=== PATIENT | male | born 1945 | race Caucasian/White ===

== ENCOUNTER → 2019-07-31 | Outpatient (CLI) | payer OTHER | LOC: SJCVCIMAG 09:22 | PROVIDERS: ATTEND Internal Medicine | DX: I45.10 Unspecified right bundle-branch block (principal); I44.0 Atrioventricular block, first degree; I71.4 Abdominal aortic aneurysm, without rupture; I10 Essential (primary) hypertension; E78.5 Hyperlipidemia, unspecified; I65.23 Occlusion and stenosis of bilateral carotid arteries; M79.89 Other specified soft tissue disorders; Z79.899 Other long term (current) drug therapy; Z87.891 Personal history of nicotine dependence; Z90.49 Acquired absence of other specified parts of digestive tract ==

== ENCOUNTER → 2020-01-29 | Outpatient (CLI) | payer OTHER | LOC: SJCVCIMAG 07:49 | PROVIDERS: ATTEND Internal Medicine | DX: I65.23 Occlusion and stenosis of bilateral carotid arteries (principal); I08.8 Other rheumatic multiple valve diseases; I44.0 Atrioventricular block, first degree; I45.10 Unspecified right bundle-branch block; I11.9 Hypertensive heart disease without heart failure; E78.5 Hyperlipidemia, unspecified; I73.9 Peripheral vascular disease, unspecified; M79.89 Other specified soft tissue disorders; I77.1 Stricture of artery; E78.00 Pure hypercholesterolemia, unspecified; Z79.899 Other long term (current) drug therapy; Z82.49 Family history of ischemic heart disease and other diseases of the circulatory system; Z87.891 Personal history of nicotine dependence; Z79.82 Long term (current) use of aspirin ==

== ENCOUNTER → 2020-03-15 | Outpatient (CLI) | payer OTHER ==
[2020-03-15] VITALS (8 sets, daily range): BP systolic 123–147; BP diastolic 62–100
[~2020-03-15] VITALS: Ht 180.3 cm; Wt 104.3 kg
[~2020-03-15] MED LIST: ASA81BEC PO; LIPITOR10 MG PO; NORVASC 2.5 MG2.5 M1 PO; ZYRTEC10 M5 PO
[2020-03-15 09:17] LABS: HEMATOCRIT 46.9 % (42.0-52.0); HEMOGLOBIN 16.3 gm/dL (14.0-18.0); MCHC 34.7 g/dL (28.0-37.0); MCV 89.4 fL (80.0-100.0); RBC 5.25 mil/uL (4.50-6.00); RDW 13.4 % (10.5-14.5); WBC 7.5 thou/uL (4.0-11.0)
[2020-03-15 09:23] LABS: CALCIUM 8.7 mg/dL (8.5-10.1); CREATININE 1.1 mg/dL (0.7-1.3); POTASSIUM 3.9 mmol/L (3.5-5.1)
== END | disposition home or self-care (01) ==
LOC: CATH 07:48
PROVIDERS: ATTEND Nuclear Medicine Nuclear Cardiology
DX: I70.211 Atherosclerosis of native arteries of extremities with intermittent claudication, right leg (principal); I70.1 Atherosclerosis of renal artery; I10 Essential (primary) hypertension; E78.5 Hyperlipidemia, unspecified; Z85.828 Personal history of other malignant neoplasm of skin; Z98.890 Other specified postprocedural states; Z79.899 Other long term (current) drug therapy; Z98.52 Vasectomy status; Z87.891 Personal history of nicotine dependence

== ENCOUNTER → 2020-03-24 | Outpatient (CLI) | payer OTHER ==
[~2020-03-24] MED LIST changes: +NORVASC5 M1 PO
== END ==
LOC: CAT 07:50
PROVIDERS: ATTEND Nuclear Medicine Nuclear Cardiology
DX: I71.4 Abdominal aortic aneurysm, without rupture (principal); I74.5 Embolism and thrombosis of iliac artery; M16.0 Bilateral primary osteoarthritis of hip; M47.816 Spondylosis without myelopathy or radiculopathy, lumbar region; I72.3 Aneurysm of iliac artery

== ENCOUNTER 2020-03-26 06:07 | Inpatient (IN) | payer OTHER ==
[2020-03-24 10:47] LABS: URINE BILIRUBIN NEGATIVE (Negative); URINE BLOOD NEGATIVE (Negative); URINE CLARITY CLEAR; URINE COLOR YELLOW; URINE GLUCOSE-RANDOM* NEGATIVE (Negative); URINE KETONES NEGATIVE (Negative); URINE LEUKOCYTES-REFLEX NEGATIVE (Negative); URINE NITRITE-REFLEX NEGATIVE (Negative); URINE PROTEIN (DIPSTICK) NEGATIVE (Negative); URINE SPECIFIC GRAVITY <= 1.005 (1.005-1.035)
[2020-03-24 10:52] LABS: ABSOLUTE NEUTROPHILS 5.6 thou/uL (1.4-8.2); BASOPHILS 0.5 % (0.0-2.0); EOSINOPHILS 1.7 % (0.0-3.0); HEMATOCRIT 48.3 % (42.0-52.0); HEMOGLOBIN 16.5 gm/dL (14.0-18.0); LYMPHOCYTES 18.4 % (24.0-44.0); MCH 30.8 pg (26.0-34.0); MCHC 34.3 g/dL (28.0-37.0); MONOCYTES 9.7 % (1.0-8.0); PLATELET COUNT 192 thou/uL (150-400); POLYS 69.7 % (36.0-66.0); RBC 5.36 mil/uL (4.50-6.00); RDW 13.8 % (10.5-14.5)
[2020-03-24 10:56] LABS: APTT 26.2 Seconds (24.5-32.8); PROTIME 10.6 Seconds (9.3-11.4)
[2020-03-24 11:02] LABS: CALCIUM 8.9 mg/dL (8.5-10.1); POTASSIUM 4.2 mmol/L (3.5-5.1); TOTAL BILIRUBIN 2.3 mg/dL (0.2-1.0); TOTAL PROTEIN 6.6 g/dL (6.4-8.2)
--- NOTE | 2020-03-24 12:53 | EKG ---
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: SHOAIB : 1945 Requested By: Rod Barton Order Number: [id number] MD: Beau Huber Measurements Intervals [place] Rate: 70 P: -38 SC: 229 QRS: 44 QRSD: 113 T: 14 QT: 406 QTc: 439 Interpretive Statements Sinus rhythm Prolonged SC interval RsR" V1 only Borderline intraventricular conduction delay Compared to ECG 11/15/2004 09:38:17 First degree AV block now present Incomplete right bundle-branch block no longer present Electronically Signed On 03-24-2020 12:53:07 SUGAR GRINDER by Beau Huber [email or web address] <ELECTRONICALLY SIGNED> By: Beau Huber MD, [facility] 03/24/20 1253 1030 1030 Beau Huber MD, FAC /EPI
[2020-03-26] VITALS (19 sets, daily range): BP systolic 93–151; BP diastolic 54–86
[~2020-03-26] VITALS: Ht 20.3 cm; Wt 111.3 kg
--- NOTE | 2020-03-26 20:33 | NUR ---
PT ARRIVED FRO OR TO ICU AT 1353. PT ACCOMPANIED BY NURSING STAFF. PT ALERT AND ORIENTED X3. PT HAS RIGHT RADIAL ART LINE. PT ON 5MG/HR CARDENE DRIP ON ARRIVAL TO ICU. PT AT BEDSIDE AT 1445.P GIVEN ICU PRIVACY CODE, EXPLAINED VISITATION POLICY AND GIVEN ICU PHONE NUMBER. PT NO T COMPLAINING OF PAIN. CONTINUE TO MONITOR.
[2020-03-27] VITALS (27 sets, daily range): BP systolic 100–150; BP diastolic 50–93
[2020-03-27 05:43] LABS: HEMATOCRIT 22.4 % (42.0-52.0); MCH 31.2 pg (26.0-34.0); MCHC 34.1 g/dL (28.0-37.0); MCV 91.5 fL (80.0-100.0); RBC 2.44 mil/uL (4.50-6.00); RDW 13.3 % (10.5-14.5); WBC 7.9 thou/uL (4.0-11.0)
[2020-03-27 05:45] LABS: CREATININE 0.6 mg/dL (0.7-1.3)
[2020-03-27 05:48] LABS: POTASSIUM 2.8 mmol/L (3.5-5.1)
[2020-03-27 05:50] LABS: HEMOGLOBIN 7.6 gm/dL (14.0-18.0)
[2020-03-27 08:20] LABS: HEMATOCRIT 44.8 % (42.0-52.0); MCH 30.8 pg (26.0-34.0); MCHC 34.2 g/dL (28.0-37.0); MCV 89.9 fL (80.0-100.0); RBC 4.99 mil/uL (4.50-6.00); RDW 13.4 % (10.5-14.5); WBC 17.9 thou/uL (4.0-11.0)
[2020-03-27 08:24] LABS: CREATININE 1.2 mg/dL (0.7-1.3)
[2020-03-27 08:36] LABS: CALCIUM 8.4 mg/dL (8.5-10.1)
[2020-03-27 08:37] LABS: HEMOGLOBIN 15.3 gm/dL (14.0-18.0)
--- NOTE | 2020-03-27 12:48 | NUR ---
NO COMPLAINTS OF PAIN, B GROIN SITES SOFT AND DRG CLEAN DRY INTACT. CARDENE DRIP OFF AT 0820. SBP REMAINED LESS THAN 130. AMBULATED WITH PT AND TOLERATED WELL. GUTIERREZ REMOVED AT 1000 AND R RADIAL CASH REMOVED AT 1220, PRESSURE HELD FOR 15 MINUTES AND PRESSURE DRESSING APPLIED. WILL TRANSFER TO , ROOM 200. REPORT GIVEN TO DARIANA HESS.
--- NOTE | 2020-03-27 16:43 | NUR ---
PT. ARRIVED AT THE FLOOR AROUND 1300; PT. AOX4; NO C/O PAIN; EDUCATED ABOUT FALL PRECAUTIONS; ST. UNDERSTANDING; EDUCATED ABOUT USING URINAL; ST. UNDERSTANDING; SR ON THE MONITOR; L. SIDE DRESSING; D/I; PT. TRANSFER FROM ICU WITH AT THE BED SIDE; AFTER 1500 NOT VISITOR AT THE BED SIDE; AROUND 1600 NOTICED DIFFERENTE VISITOR; BLEND PLANT OPERATOR ENTER TO THE ROOM; VISITOR ST. BEING THE DAUGHTER; EDUCATED ABOUT VISITOR POLICY; PT'S DAUGHTER UPSET; ST. "VAZQUEZ PUT ME ON THE LIST"; BLEND PLANT OPERATOR NOT NOTIFIED; EDUCATED ABOUT PER PIPELINE CONSTRUCTION INSPECTOR, ROMERO, NOT TWO VISITORS ALLOW; PT'S DAUGHTER UPSET; ST. WILL NOT STAY UNTIL 0700; BLEND PLANT OPERATOR LEAVE ROOM; TAX FORM PREPARER NOTIFIED; TOYA HENRY TAX FORM PREPARERVAZQUEZ ALLOW TWO VISITORS DUE TO DRIVING CIRCUNSTANCES; NOTIFIED ABOUT ROMERO ON 03/26/20 NOTIFIED NURSES ON CCU PT'S ARE NOT ALLOW TO HAVE MORE THAN ONE VISITOR REGARDLESS OF THE CIRCUNSTANCES; TAX FORM PREPARER WILL ROUND ON PT. LATER ON THE DAY; ASSESSMENT CHARGED; FOLLOWING POC; WILL PASS ON REPORT;
[2020-03-28 05:50] VITALS: BP 149/78
--- NOTE | 2020-03-28 06:05 | NUR ---
ASSUME CARE 1900. PT/VITALS STABLE. DENIES ANY PAIN. GOOD ENDURANCE TO ACTIVITY. ASSESSMENT CHARTED. PROGRESSING WELL WITH POC. SR/1D AVB ON MONITOR. BILAETERAL GROIN SITES/CDI WITH NO HEMATOMA NOTED. PLAN IS POSSIBLE DISCHARGE TODAY. WILL CONTINUE TO MONITOR AND FOLLOW WITH POC
[2020-03-28 07:15] VITALS: BP 148/82
--- NOTE | 2020-03-28 07:59 | O ---
[facility] [place] [address] OPERATIVE REPORT Name: UYEN LOPEZ Room #: 200-I ADM IN M.R.#: [id number] Admission: 03/26/20 Attend Phys: Rod Barton MD Discharge: Date of : 41 Report #: [id number] THIS REPORT FOR: cc: Anil Mederos,Anil Mccoy,Rod Mercado MD ~ DATE OF SERVICE: 03/27/2020 PREOPERATIVE DIAGNOSIS: Infrarenal abdominal aortic aneurysm. POSTOPERATIVE DIAGNOSIS: Infrarenal abdominal aortic aneurysm. OPERATION: Stent graft implant for infrarenal abdominal aortic aneurysm. SURGEON: Dr. Rod Barton and Dr. Yosef Dutton. SENIOR VICE PRESIDENT & GENERAL COUNSEL: BANDAR Jones ANESTHESIA: General. INDICATIONS: The patient is a 74-year-old with an infrarenal abdominal aortic aneurysm measures 5.4 cm. This has been followed for some time and has been seen to grow. 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 TECHNIQUE: After general anesthesia was established, incisions were made in both groins to expose the femoral artery. On the left side, there was a particular reaction from the Mynx device used for arterial closure and we exposed the superficial femoral artery. 10,000 units of heparin were given on each side, the femoral artery was entered with the Amplatz needle followed by guidewire and 6-[place] sheath. On the left side, this was done through the superficial femoral artery over long J wire exchange catheter was placed, so that we could place a Javon wire. Over the Javon wire on the left side, a 12-[place] sheath was placed through a cutdown in the left superficial femoral artery and on the right side, an 18-[place] sheath was placed over the wire via a cutdown in the right common femoral artery. Through the right side, the main body was used. A 28 x 14 main body was placed through the left side, the lower left renal artery was accessed and a guiding catheter was placed for localization. The stent graft was deployed just at the lowest margin of the left renal artery. The contralateral gate was cannulated and then a 14 cm long device was placed as [facility] [address] [place] [address] OPERATIVE REPORT Name: UYEN LOPEZ Room #: 200-I [facility] [place] .R.#: [id number] Admission: 03/26/20 Attend Phys: Rod Barton MD Discharge: Date of : 41 Report #: [id number] a contralateral component. A sheath shot was not necessary as the hypogastric arteries were occluded. The main body was deployed completely and then through the left side, the Q50 balloon was placed to fully expand the main body at the proximal landing zone and to set the active fixation. Balloon dilatation was done through the length of this device at the contralateral gate and then down through the iliac component. A similar procedure was done with the Q50 balloon through the right side fully deploying the iliac extension of the main body. Because of the preexisting iliac stenoses 10 x 4 balloon was used for angioplasty. First this was done over the Javon wire through the left side to dilate the iliac narrowing and the same procedure was done to the right side as an angioplasty to fully dilate the moderate stenosis in the iliac artery. When the graft was fully deployed and all of the angioplasties were complete, the pigtail catheter was placed to perform a final arteriogram. This was done and this showed no evidence of endoleak at the proximal or distal landing zones. It should be mentioned that when the contralateral gate was cannulated, the time was taken to pass a pigtail catheter and using the spin technique, we ascertained that we had indeed cannulated the contralateral gate properly. When all the devices had been fully deployed and the final arteriogram was done, dilators were replaced through the sheaths and then the sheaths and dilators were removed and then the guidewires were removed. On each side, the arteriotomy was closed with interrupted Prolene. Flow was reestablished and good distal pulses were obtained. Heparin was reversed with protamine and when hemostasis was satisfactory, the wounds were closed in layers. The patient tolerated the procedure well and was taken to the recovery area in good condition with distal pulses palpable. All counts reported as correct. <ELECTRONICALLY SIGNED> By: Rod Barton MD 03/28/20 0759 [id number] 1144 Rod Barton MD /nt
[2020-03-28 08:16] VITALS: BP 149/78
--- NOTE | 2020-03-28 08:27 | NUR ---
DR. SOW DISCHARGING PATIENT TO HOME. DISCHARGE INSTRUCTIONS GIVEN. SALINE LOCK DISCONTINUED. TELE PACK SECURED.
[2020-03-28 08:59] VITALS: BP 149/78
== END 2020-03-28 10:14 | disposition home or self-care (01) | DRG 269 ==
LOC: TBA 06:07 → EDSTATUS 07:37 → PRE 07:43 → ICU 13:41 → OR 14:08 → 2N 03-27 13:00
PROVIDERS: Physician Assistant; ADMIT Surgery Vascular Surgery; ATTEND Surgery Vascular Surgery
PROC: 047D3ZZ Dilation of Left Common Iliac Artery, Percutaneous Approach (ICD-10-PCS; principal; 2020-03-27)
PROC: 04V03DZ Restriction of Abdominal Aorta with Intraluminal Device, Percutaneous Approach (ICD-10-PCS; principal; 2020-03-27)
PROC: B4181ZZ Fluoroscopy of Bilateral Renal Arteries using Low Osmolar Contrast (ICD-10-PCS; principal; 2020-03-27)
PROC: 047C3ZZ Dilation of Right Common Iliac Artery, Percutaneous Approach (ICD-10-PCS; principal; 2020-03-27)
DX: I71.4 Abdominal aortic aneurysm, without rupture (principal); I73.9 Peripheral vascular disease, unspecified; I25.10 Atherosclerotic heart disease of native coronary artery without angina pectoris; I10 Essential (primary) hypertension; E78.5 Hyperlipidemia, unspecified; Z20.822 Contact with and (suspected) exposure to COVID-19
CPT/HCPCS: 10078; 10081; 47375; 50010; 50101; 50386; 50455; 52287; 54118; 56524; 56526; 56531; 56668; 56760; 57093; 57853; 57854; 57857; 58467; 58468; 62110; 62900; 65020; 70005

== ENCOUNTER → 2020-05-11 | Outpatient (CLI) | payer OTHER | LOC: LAB 07:55 | PROVIDERS: ATTEND Nuclear Medicine Nuclear Cardiology | DX: N40.0 Benign prostatic hyperplasia without lower urinary tract symptoms (principal); K42.9 Umbilical hernia without obstruction or gangrene; I71.4 Abdominal aortic aneurysm, without rupture; Z98.890 Other specified postprocedural states; Z95.828 Presence of other vascular implants and grafts ==

== ENCOUNTER → 2020-05-11 | Outpatient (CLI) | payer OTHER | LOC: SJCVC 09:49 | PROVIDERS: ATTEND Nuclear Medicine Nuclear Cardiology | DX: I71.4 Abdominal aortic aneurysm, without rupture (principal); I77.9 Disorder of arteries and arterioles, unspecified; I10 Essential (primary) hypertension; I73.9 Peripheral vascular disease, unspecified; E78.00 Pure hypercholesterolemia, unspecified; Z79.82 Long term (current) use of aspirin; Z79.899 Other long term (current) drug therapy; Z72.89 Other problems related to lifestyle; Z87.891 Personal history of nicotine dependence ==

== ENCOUNTER → 2020-08-18 | Outpatient (CLI) | payer OTHER | LOC: SJCVCIMAG 07:39 | PROVIDERS: ATTEND Internal Medicine | DX: R94.31 Abnormal electrocardiogram [ECG] [EKG] (principal); I45.10 Unspecified right bundle-branch block; I71.4 Abdominal aortic aneurysm, without rupture; R06.02 Shortness of breath; I10 Essential (primary) hypertension; E78.5 Hyperlipidemia, unspecified; I65.23 Occlusion and stenosis of bilateral carotid arteries; I73.9 Peripheral vascular disease, unspecified; M79.89 Other specified soft tissue disorders; I77.1 Stricture of artery; E78.00 Pure hypercholesterolemia, unspecified; Z87.891 Personal history of nicotine dependence; Z79.82 Long term (current) use of aspirin; Z79.899 Other long term (current) drug therapy; Z72.89 Other problems related to lifestyle; Z95.828 Presence of other vascular implants and grafts ==

== ENCOUNTER → 2021-02-16 | Outpatient (CLI) | payer OTHER | LOC: SJCVCIMAG 07:05 | PROVIDERS: ATTEND Nuclear Medicine Nuclear Cardiology | DX: I65.23 Occlusion and stenosis of bilateral carotid arteries (principal); I71.4 Abdominal aortic aneurysm, without rupture; I10 Essential (primary) hypertension; E78.5 Hyperlipidemia, unspecified; I73.9 Peripheral vascular disease, unspecified; I77.1 Stricture of artery; E78.00 Pure hypercholesterolemia, unspecified; Z79.82 Long term (current) use of aspirin; Z79.899 Other long term (current) drug therapy; F17.210 Nicotine dependence, cigarettes, uncomplicated; Z72.89 Other problems related to lifestyle; Z82.49 Family history of ischemic heart disease and other diseases of the circulatory system ==